=== PATIENT | female | born 1985 | race Hispanic/Latino ===

== ENCOUNTER 2017-10-25 08:17 | Emergency (ER) | payer MEDICAID ==
[2017-10-25] MEDS ORDERED: PREDNISONE 20 MG TABLET ONE (08:59)
[2017-10-25] MEDS ORDERED: DIPHENHYDRAMINE HCL 25 MG CAPSULE ONE (08:59)
== END 2017-10-25 09:14 | disposition home or self-care (01) ==
LOC: EDH 08:17
DX: L50.0 Allergic urticaria (principal); Z72.0 Tobacco use; Z90.710 Acquired absence of both cervix and uterus
CPT/HCPCS: 99283; Q0163

== ENCOUNTER 2021-02-24 17:29 | Emergency (ER) | payer MEDICAID, OTHER ==
[2021-02-24 17:49] LABS: BASOPHILS % (AUTO) 0.4 % (0.0-5.0); EOSINOPHILS % (AUTO) 1.7 % (0.0-8.0); HEMATOCRIT 36.5 % (36-48); LYMPHOCYTES % (AUTO) 39.8 % (21.0-51.0); MEAN CORPUSCULAR HEMOGLOBIN 29.6 pg (27.0-33.0); MEAN CORPUSCULAR HGB CONC 33.7 g/dL (32.0-36.0); MEAN CORPUSCULAR VOLUME 87.7 fL (79-99); MONOCYTES % (AUTO) 6.3 % (3.0-13.0); NEUTROPHILS % (AUTO) 51.6 % (40.0-77.0); PLATELET COUNT (AUTO) 339 K/uL (130-400); RED BLOOD CELL COUNT(AUTO) 4.16 MIL/uL (4.00-5.50); WHITE BLOOD COUNT (AUTO) 8.3 K/uL (4.8-10.8)
[2021-02-24 18:04] LABS: CREATININE 0.7 mg/dL (0.5-1.5); POTASSIUM 3.7 mmol/L (3.5-5.1)
[2021-02-24 18:09] LABS: ALBUMIN 3.6 g/dL (3.5-5.0); BILIRUBIN,TOTAL 0.5 mg/dL (0.2-1.0)
[2021-02-24] MEDS ORDERED: LORAZEPAM 1 MG TABLET ONE (18:44)
[2021-02-24 18:57] LABS: APPEARANCE,URINE Clear (CLEAR); BILIRUBIN,URINE Negative (NEGATIVE); COLOR,URINE Yellow (YELLOW); GLUCOSE, URINE (UA) Negative (NEGATIVE); KETONES,URINE 40 mg/dL (NEGATIVE); LEUKOCYTE ESTERASE ,URINE Trace (NEGATIVE); NITRATE,URINE Negative (NEGATIVE); OCCULT BLOOD,URINE Negative (NEGATIVE); PH,URINE 7.5 (5.0-8.0); PROTEIN,URINE Negative (NEGATIVE)
[2021-02-24 19:09] LABS: BACTERIA,URINE Few /HPF (None Seen); MUCUS,URINE Few LPF (None Seen); RBC,URINE 0-1 /HPF (0-1); SQUAMOUS EPITHELIAL CELL,UR Moderate /HPF (0-2)
== END 2021-02-24 19:31 | disposition home or self-care (01) ==
LOC: EDH 17:29
DX: F41.9 Anxiety disorder, unspecified (principal); R07.89 Other chest pain; Z72.0 Tobacco use
CPT/HCPCS: 36415; 71045; 80053; 81001; 82550; 84484; 85025; 93005

== ENCOUNTER 2022-05-27 14:25 | Emergency (ER) | payer BC, OTHER ==
[~2022-05-27] VITALS: Ht 154.9 cm; Wt 152.4 kg
[2022-05-27 14:51] LABS: BASOPHILS % (AUTO) 0.4 % (0.0-5.0); EOSINOPHILS % (AUTO) 2.4 % (0.0-8.0); HEMATOCRIT 37.7 % (36-48); LYMPHOCYTES % (AUTO) 30.2 % (21.0-51.0); MEAN CORPUSCULAR VOLUME 88.5 fL (79-99); MONOCYTES % (AUTO) 8.2 % (3.0-13.0); NEUTROPHILS % (AUTO) 58.6 % (40.0-77.0); PLATELET COUNT (AUTO) 377 K/uL (130-400); RED BLOOD CELL COUNT(AUTO) 4.26 MIL/uL (4.00-5.50); WHITE BLOOD COUNT (AUTO) 9.6 K/uL (4.8-10.8)
[2022-05-27] MEDS ORDERED: ONDANSETRON 4MG INJ IVP ONE (15:00)
[2022-05-27] MEDS ORDERED: KETOROLAC 30MG VIAL (30MG/ML) IVP ONE (15:00)
[2022-05-27 15:01] LABS: APPEARANCE,URINE SL CLOUDY (CLEAR); BILIRUBIN,URINE NEGATIVE (NEGATIVE); COLOR,URINE YELLOW (YELLOW); GLUCOSE, URINE (UA) NEGATIVE (NEGATIVE); KETONES,URINE NEGATIVE (NEGATIVE); LEUKOCYTE ESTERASE ,URINE NEGATIVE (NEGATIVE); NITRATE,URINE NEGATIVE (NEGATIVE); OCCULT BLOOD,URINE NEGATIVE (NEGATIVE); PH,URINE 7.5 (5.0-8.0); PROTEIN,URINE NEGATIVE (NEGATIVE); UROBILINOGEN,URINE 0.2 mg/dL (0.2-1.0)
[2022-05-27 15:04] LABS: CREATININE 0.6 mg/dL (0.5-1.5); POTASSIUM 4.1 mmol/L (3.5-5.1)
[2022-05-27 15:07] LABS: AMORPHOUS SEDIMENT,UR Many /LPF (None Seen); BACTERIA,URINE Rare /HPF (None Seen); MUCUS,URINE None Seen LPF (None Seen); RBC,URINE 0-1 /HPF (0-1); SQUAMOUS EPITHELIAL CELL,UR Rare /HPF (0-2); WBC,URINE 0-1 /HPF (0-1)
[2022-05-27 15:08] LABS: HCG,QUALITATIVE URINE NEGATIVE (NEGATIVE)
[2022-05-27 15:14] LABS: ALBUMIN 3.2 g/dL (3.5-5.0); TOTAL PROTEIN, SERUM 6.3 g/dL (6.0-8.3)
[2022-05-27] MEDS ORDERED: DICY20TA2 PO (15:53)
[2022-05-27 15:57] VITALS: BP 145/69
== END 2022-05-27 16:05 | disposition home or self-care (01) ==
LOC: EDH 14:25
DX: R10.12 Left upper quadrant pain (principal); E66.01 Morbid (severe) obesity due to excess calories; Z68.44 Body mass index [BMI] 60.0-69.9, adult
CPT/HCPCS: 99284; 74176; 96374; 96375; 84484; 80053; 83690; 85025; 81001; 81025; 36415; J2405; J1885

== ENCOUNTER 2023-03-14 20:33 | Emergency (ER) | payer OTHER ==
[~2023-03-14] VITALS: Ht 152.4 cm; Wt 111.1 kg
[~2023-03-14 20:33] MED LIST: DICY20TA2 PO
[2023-03-14 20:36] VITALS: BP 187/88
[2023-03-14] MEDS ORDERED: KETOROLAC 60 MG VIAL (30MG/ML) IM ONE (21:30)
[2023-03-14] MEDS ORDERED: IBUP-2070 PO (22:01)
== END 2023-03-14 22:11 | disposition home or self-care (01) ==
LOC: EDH 20:33
DX: S63.501A Unspecified sprain of right wrist, initial encounter (principal); Z90.710 Acquired absence of both cervix and uterus; Z90.49 Acquired absence of other specified parts of digestive tract; X50.0XXA Overexertion from strenuous movement or load, initial encounter; Y93.89 Activity, other specified; Y92.89 Other specified places as the place of occurrence of the external cause; Y99.8 Other external cause status
CPT/HCPCS: 99283; 73110; 29125; 96372; J1885

== ENCOUNTER 2023-06-01 13:22 | Emergency (ER) | payer OTHER ==
[~2023-06-01] VITALS: Ht 154.9 cm; Wt 107.5 kg
[~2023-06-01 13:22] MED LIST changes: +IBUP-2070 PO
[2023-06-01 17:24] VITALS: BP 149/95; PULSE 82; RESP 18; O2SAT 97
== END 2023-06-01 17:25 | disposition home or self-care (01) ==
LOC: EDH 13:22
DX: Z00.00 Encounter for general adult medical examination without abnormal findings (principal); Z90.710 Acquired absence of both cervix and uterus; Z90.49 Acquired absence of other specified parts of digestive tract
CPT/HCPCS: 71045; 74018